=== PATIENT | female | born 1945 | race Caucasian/White ===

== ENCOUNTER → 2016-11-15 | Outpatient (CLI) | payer MEDICARE, MEDICAID ==
[~2016-11-15] MED LIST: AMLO10TA2 PO; AMLO10TA4 PO; AMOX1TAB64 PO; AZIT250T PO; BUDE10.2; BUDE10.2 IH; CEFU500T PO; CYAN1TAB2; DICY10CA3 PO; DOXY100C15 PO; FERR325T20 PO; FOLI-17 PO; FURO-93 PO; HYDR-3240; HYDR-3240 PO; IPRA3AMP18 INH; LISI-170; LORA0.5T PO; METH4TAB2 PO; POTA20PA8 PO; POTA99TA14; PRED10TA14 PO; PRED20TA; PRED20TA PO; PREDNISONE; TIOT18CA; WARF1TAB; WARF5TAB PO; WARF7.5T PO
== END | disposition home or self-care (01) ==
LOC: CFH 14:18
PROVIDERS: ATTEND Internal Medicine Cardiovascular Disease
DX: I08.3 Combined rheumatic disorders of mitral, aortic and tricuspid valves (principal); I25.10 Atherosclerotic heart disease of native coronary artery without angina pectoris; I37.1 Nonrheumatic pulmonary valve insufficiency; J43.9 Emphysema, unspecified; I25.2 Old myocardial infarction; I10 Essential (primary) hypertension; Z87.891 Personal history of nicotine dependence; Z98.82 Breast implant status
CPT/HCPCS: 93306

== ENCOUNTER 2017-01-11 12:51 | Inpatient (IN) | payer MEDICARE, MEDICAID ==
[~2017-01-11] VITALS: Ht 175.3 cm; Wt 56.8 kg
[2017-01-11] MEDS ORDERED: WARF2.5T PO (13:28)
[2017-01-11] MEDS ORDERED: ALBUTEROL/IPRATROPIUM 2.5MG/0.5MG, 3 ML NPPB ONE (13:30)
[2017-01-11] MEDS ORDERED: MORPHINE SULFATE 4 MG/ML, 1ML IVPush PRN (13:30)
[2017-01-11] MEDS ORDERED: methylPREDNISolone SOD SUCC 125 MG/2 ML IVP ONE (13:30)
[2017-01-11] MEDS ORDERED: SODIUM CHLORIDE 0.9% 1,000ML IVBOLUS ONE (13:30)
[2017-01-11] MEDS ORDERED: SODIUM CHLORIDE FLUSH 10ML SYR IVF ONE (13:30)
[2017-01-11] MEDS ORDERED: ONDANSETRON 2MG/ML, 2ML IVP ONE (13:30)
[2017-01-11] MEDS ORDERED: ALBUTEROL/IPRATROPIUM 2.5MG/0.5MG, 3 ML ONE (13:32)
[2017-01-11 14:04] LABS: ASPARTATE AMINO TRANSFERASE 17 U/L (15-37); BLOOD UREA NITROGEN 11 mg/dL (7-18)
[2017-01-11] MEDS ORDERED: MORPHINE SULFATE 4 MG/ML, 1ML ONE (14:12)
[2017-01-11] MEDS ORDERED: methylPREDNISolone SOD SUCC 125 MG/2 ML ONE (14:12)
[2017-01-11] MEDS ORDERED: ONDANSETRON 2MG/ML, 2ML ONE (14:12)
[2017-01-11 14:20] LABS: IS PT STATUS REG ER OR PRE ER? YES
[2017-01-11] MEDS ORDERED: OMNIPAQUE 350 MG/ML, 100ML BOTTLE ONE (15:41)
[2017-01-11] MEDS ORDERED: HYDROcodone/APAP 5/325 TABLET PO SCH (17:00)
[2017-01-11] MEDS: methylPREDNISolone SOD SUCC 40 MG/ML IV SCH (17:00)
[2017-01-11] MEDS ORDERED: POLYETHYLENE GLYCOL 17 GM PACKET PO PRN (17:30)
[2017-01-11] MEDS ORDERED: DOCUSATE 100 MG CAPSULE PO PRN (17:30)
[2017-01-11] MEDS ORDERED: BISACODYL 10 MG SUPP PR PRN (17:30)
[2017-01-11] MEDS ORDERED: WARFARIN 5 MG TABLET PO-COUM ONE (20:00)
[2017-01-11] MEDS: NORCO MC SCH (20:00)
[2017-01-11] MEDS ORDERED: DOXYCYCLINE 100MG TABLET PO ONE (21:00)
[2017-01-11] MEDS: LORazepam 0.5MG TABLET PO SCH (21:00)
[2017-01-11] MEDS: NICOTINE 14MG/24 HR PATCH.TD24 TD SCH (21:34)
[2017-01-11] MEDS: HYDROcodone/APAP 5/325 TABLET PO PRN (21:35)
[2017-01-11 21:45] VITALS: BP 134/80
[2017-01-12] MEDS: methylPREDNISolone SOD SUCC 40 MG/ML IV SCH ×3 (00:56→17:18)
[2017-01-12] MEDS ORDERED: ALBUTEROL/IPRATROPIUM 2.5MG/0.5MG, 3 ML NPPB PRN (01:00)
[2017-01-12 02:00] VITALS: BP 114/66
[2017-01-12] MEDS: NORCO MC SCH ×3 (03:50→20:00)
[2017-01-12 05:36] LABS: ASPARTATE AMINO TRANSFERASE 16 U/L (15-37); BLOOD UREA NITROGEN 16 mg/dL (7-18)
[2017-01-12 06:01] LABS: IS PT STATUS REG ER OR PRE ER? NO
[2017-01-12] MEDS: ALBUTEROL/IPRATROPIUM 2.5MG/0.5MG, 3 ML NPPB SCH ×4 (06:26→20:00)
[2017-01-12 07:40] VITALS: BP 126/67
[2017-01-12] MEDS: DICYCLOMINE 10 MG CAPSULE PO SCH ×3 (08:35→17:18)
[2017-01-12] MEDS: FLUTICASONE/VILANTEROL 200-25MCG/INH INH SCH (08:35)
[2017-01-12] MEDS: HYDROcodone/APAP 5/325 TABLET PO PRN ×3 (08:36→21:46)
[2017-01-12] MEDS: FUROSEMIDE 20 MG TABLET PO SCH (08:36)
[2017-01-12] MEDS: LORazepam 0.5MG TABLET PO SCH ×2 (08:36→21:46)
[2017-01-12] MEDS: POTASSIUM CHLORIDE 20 MEQ TAB.ER.PRT PO SCH (08:36)
[2017-01-12 08:38] LABS: PATH.CAST-FLAG NOT PRESENT; SPERM-FLAG NOT PRESENT; SRC-FLAG NOT PRESENT; XTAL-FLAG NOT PRESENT; YLC-FLAG NOT PRESENT
[2017-01-12] MEDS ORDERED: REGADENOSON 0.4 MG/5 ML SYRINGE ONE (09:05)
[2017-01-12 14:51] VITALS: BP 127/66
[2017-01-12 19:53] VITALS: BP 132/72
[2017-01-12] MEDS: NICOTINE 14MG/24 HR PATCH.TD24 TD SCH (21:47)
[2017-01-13 00:30] VITALS: BP 131/72
[2017-01-13] MEDS: methylPREDNISolone SOD SUCC 40 MG/ML IV SCH ×3 (01:41→10:12)
[2017-01-13] MEDS: ALBUTEROL/IPRATROPIUM 2.5MG/0.5MG, 3 ML NPPB SCH ×2 (07:00→11:00)
[2017-01-13 07:20] VITALS: BP 145/74
[2017-01-13] MEDS: NORCO MC SCH (08:00)
[2017-01-13] MEDS: POTASSIUM CHLORIDE 20 MEQ TAB.ER.PRT PO SCH (08:02)
[2017-01-13] MEDS: DICYCLOMINE 10 MG CAPSULE PO SCH ×2 (08:02→11:41)
[2017-01-13] MEDS: LORazepam 0.5MG TABLET PO SCH (08:02)
[2017-01-13] MEDS: FUROSEMIDE 20 MG TABLET PO SCH (08:02)
[2017-01-13] MEDS: FLUTICASONE/VILANTEROL 200-25MCG/INH INH SCH (08:02)
[2017-01-13] MEDS: HYDROcodone/APAP 5/325 TABLET PO PRN (10:12)
[2017-01-13] MEDS ORDERED: PRED5TAB PO (13:26)
[2017-01-13] MEDS ORDERED: WARFARIN 5 MG TABLET PO-COUM SCH (18:00)
== END 2017-01-13 13:40 | disposition home or self-care (01) | DRG 189 ==
LOC: ED 16:34 → EDIP 17:10 → 5SO 19:41 → 4WST 01-12 18:15 → DCLOUNGE 01-13 13:24
PROVIDERS: ADMIT Internal Medicine; ATTEND Internal Medicine
DX: J96.21 Acute and chronic respiratory failure with hypoxia (principal); J44.1 Chronic obstructive pulmonary disease with (acute) exacerbation; I50.9 Heart failure, unspecified; I11.0 Hypertensive heart disease with heart failure; T38.0X5A Adverse effect of glucocorticoids and synthetic analogues, initial encounter; Z87.891 Personal history of nicotine dependence; Z99.81 Dependence on supplemental oxygen; Z95.2 Presence of prosthetic heart valve; Z87.01 Personal history of pneumonia (recurrent); Z83.3 Family history of diabetes mellitus
CPT/HCPCS: 36415; 71010; 71275; 78452; 80053; 81001; 83605; 83735; 83880; 84100; 84145; 84443; 84484; 85025; 85610; 85730; 87040; 93005; 93017; 94640; 96361; 96374; 96375; J2405; J2785; J7620; Q9967; A9502; C9898; J2920; J2930; J7030

== ENCOUNTER 2017-04-19 11:45 | Emergency (ER) | payer MEDICARE, MEDICAID ==
[~2017-04-19] VITALS: Ht 175.3 cm; Wt 58.4 kg
[~2017-04-19 11:45] MED LIST changes: +FERR325T18 PO; -FERR325T20 PO; +POTA20PA25 PO; -POTA20PA8 PO; +PRED5TAB PO; -TIOT18CA; +TIOT18CA INH; +WARF2.5T PO
[2017-04-19] MEDS ORDERED: methylPREDNISolone SOD SUCC 125 MG/2 ML IVP ONE (12:30)
[2017-04-19] MEDS ORDERED: ALBUTEROL/IPRATROPIUM 2.5MG/0.5MG, 3 ML NPPB SCH (12:30)
[2017-04-19] MEDS ORDERED: SODIUM CHLORIDE FLUSH 10ML SYR IVF ONE (12:30)
[2017-04-19] MEDS ORDERED: ALBUTEROL/IPRATROPIUM 2.5MG/0.5MG, 3 ML ONE (12:33)
[2017-04-19] MEDS ORDERED: methylPREDNISolone SOD SUCC 125 MG/2 ML ONE (12:42)
[2017-04-19] MEDS ORDERED: ONDANSETRON 2MG/ML, 2ML ONE (12:44)
[2017-04-19] MEDS ORDERED: HYDROmorphone 1 MG/ML, 1ML ONE (12:44)
[2017-04-19 12:49] LABS: HEMATOCRIT 40.2 % (34.6-47.8); HEMOGLOBIN 12.8 g/dL (11.7-16.4); WHITE BLOOD COUNT 6.1 x10^3/uL (3.4-10)
[2017-04-19] MEDS ORDERED: LISI-170 PO (12:55)
[2017-04-19 13:00] LABS: BLOOD UREA NITROGEN 11 mg/dL (7-18)
[2017-04-19] MEDS ORDERED: ONDANSETRON 2MG/ML, 2ML IVPush ONE (13:00)
[2017-04-19] MEDS ORDERED: HYDROmorphone 1 MG/ML, 1ML IVPush PRN (13:00)
[2017-04-19 13:05] LABS: IS PT STATUS REG ER OR PRE ER? YES
[2017-04-19 14:00] VITALS: BP 136/71
== END 2017-04-19 14:11 | disposition home or self-care (01) ==
LOC: ED 13:45
DX: J44.1 Chronic obstructive pulmonary disease with (acute) exacerbation (principal); R06.09 Other forms of dyspnea; Z87.891 Personal history of nicotine dependence; I11.0 Hypertensive heart disease with heart failure; I50.30 Unspecified diastolic (congestive) heart failure; Z95.2 Presence of prosthetic heart valve; Z99.81 Dependence on supplemental oxygen
CPT/HCPCS: 36415; 71010; 80048; 82040; 83605; 83880; 84484; 85025; 85610; 85730; 87040; 93005; 94640; 96374; 96375; 99285; J1170; J2405; J2930; J7620

== ENCOUNTER → 2017-08-19 | Outpatient (CLI) | payer MEDICARE, MEDICAID ==
[~2017-08-19] MED LIST changes: +LISI-170 PO
== END ==
LOC: CFH 13:59
PROVIDERS: ATTEND Family Medicine
DX: Z12.31 Encounter for screening mammogram for malignant neoplasm of breast (principal); Z13.820 Encounter for screening for osteoporosis; M81.0 Age-related osteoporosis without current pathological fracture; J96.11 Chronic respiratory failure with hypoxia; T85.49XA Other mechanical complication of breast prosthesis and implant, initial encounter; Z79.51 Long term (current) use of inhaled steroids
CPT/HCPCS: 77080; 77067

== ENCOUNTER 2017-12-06 07:52 | Inpatient (IN) | payer MEDICARE, MEDICAID ==
[~2017-12-06] VITALS: Ht 176.5 cm; Wt 60.3 kg
[2017-12-06] MEDS ORDERED: ALBUTEROL/IPRATROPIUM 2.5MG/0.5MG, 3 ML ONE (08:20)
[2017-12-06] MEDS: ALBUTEROL/IPRATROPIUM 2.5MG/0.5MG, 3 ML NPPB SCH ×3 (08:27→19:24)
[2017-12-06] MEDS ORDERED: methylPREDNISolone SOD SUCC 125 MG/2 ML IVP ONE (08:30)
[2017-12-06] MEDS ORDERED: MAGNESIUM SULFATE PMX 2GM/50ML 50 ML IVPB ONE (08:30)
[2017-12-06] MEDS ORDERED: SODIUM CHLORIDE FLUSH 10ML SYR IVF ONE (08:30)
[2017-12-06] MEDS ORDERED: methylPREDNISolone SOD SUCC 125 MG/2 ML ONE (08:33)
[2017-12-06] MEDS ORDERED: KETOROLAC 30 MG/1 ML ONE (08:46)
[2017-12-06] MEDS ORDERED: FENTANYL PF 100 MCG/2ML ONE (08:47)
[2017-12-06] MEDS ORDERED: KETOROLAC 30 MG/1 ML IVPush ONE (09:00)
[2017-12-06] MEDS ORDERED: FENTANYL PF 100 MCG/2ML IV ONE (09:00)
[2017-12-06] MEDS ORDERED: POTA20TA89 PO (09:03)
[2017-12-06] MEDS ORDERED: LORA0.5T PO (09:03)
[2017-12-06] MEDS ORDERED: DICY10CA3 PO (09:03)
[2017-12-06] MEDS ORDERED: HYDR-3237 PO (09:03)
[2017-12-06] MEDS ORDERED: LASIX PO (09:03)
[2017-12-06] MEDS ORDERED: ALBUTEROL INH (09:05)
[2017-12-06 09:16] LABS: ALANINE AMINOTRANSFERASE 14 U/L (12-78); ALBUMIN 3.7 g/dL (3.4-5.0); ANION GAP 6 mmol/L (5-15); CALCIUM 8.5 mg/dL (8.5-10.1); CHLORIDE 107 mmol/L (98-107)
[2017-12-06 09:21] LABS: ALKALINE PHOSPHATASE 95 U/L (45-117); BILIRUBIN,TOTAL 0.3 mg/dL (0.2-1.0); CREATININE 0.52 mg/dL (0.55-1.02); TOTAL PROTEIN 6.7 g/dL (6.4-8.2); TROPONIN I 0.019 ng/mL (0.000-0.045)
[2017-12-06 09:40] LABS: BASOPHILS # (AUTO) 0.07 x10^3/uL (0-0.1); BASOPHILS % (AUTO) 1 % (0-1); EOSINOPHILS # (AUTO) 0.16 x10^3/uL (0-0.4); EOSINOPHILS % (AUTO) 2 % (1-7); LYMPHOCYTES # (AUTO) 1.04 x10^3/uL (1-3.4); LYMPHOCYTES % (AUTO) 13 % (22-44); MD NO; MEAN CORPUSCULAR HEMOGLOBIN 27.9 pg (27.0-34.8); MEAN CORPUSCULAR VOLUME 84.7 fL (80-100); MEAN PLATELET VOLUME 9.4 fL (7.4-10.4); MONOCYTES # (AUTO) 0.37 x10^3/uL (0.2-0.8); MONOCYTES % (AUTO) 5 % (2-9); NEUTROPHILS # (AUTO) 6.66 x10^3/uL (1.8-6.8); NEUTROPHILS % (AUTO) 80 % (42-75); PLATELET COUNT 271 x10^3/uL (130-400); RED CELL DISTRIBUTION WIDTH 14.5 % (9.6-15.2)
[2017-12-06] MEDS ORDERED: ONDANSETRON ODT 4 MG ONE (10:23)
[2017-12-06] MEDS ORDERED: OMNIPAQUE 350 MG/ML, 100ML BOTTLE ONE (10:25)
[2017-12-06] MEDS ORDERED: ONDANSETRON ODT 4 MG PO ONE (10:30)
[2017-12-06] MEDS ORDERED: CEFTRIAXONE PMX 1GM/50ML 50 ML IV ONE (11:00)
[2017-12-06] MEDS ORDERED: CEFTRIAXONE PMX 1GM/50ML 50 ML ONE (11:14)
[2017-12-06] MEDS ORDERED: MORPHINE SULFATE 4 MG/ML, 1ML ONE (11:53)
[2017-12-06] MEDS ORDERED: LABETALOL 5MG/ML, 20ML IVPush PRN (12:00)
[2017-12-06] MEDS ORDERED: GUAIFENESIN/DM 200-20MG, 10ML UDC PO PRN (12:00)
[2017-12-06] MEDS ORDERED: WARFARIN MECH. VALVE PROTOCOL 2.5 to 3.5 XX PRN (12:00)
[2017-12-06] MEDS ORDERED: ACETAMINOPHEN 325 MG TABLET PO PRN (12:00)
[2017-12-06] MEDS ORDERED: MORPHINE SULFATE 4 MG/ML, 1ML IVPush ONE (12:00)
[2017-12-06] MEDS: CEFTRIAXONE PMX 1GM/50ML 50 ML IV SCH (12:00)
[2017-12-06] MEDS ORDERED: POLYETHYLENE GLYCOL 17 GM PACKET PO PRN (12:00)
[2017-12-06] MEDS ORDERED: hydrALAzine 20 MG/ML, 1ML IVPush PRN (12:00)
[2017-12-06 12:49] VITALS: BP 134/73
[2017-12-06 12:53] LABS: INTERNATIONAL NORMALIZED RATIO 2.5 (0.93-1.1); PROTHROMBIN TIME 25.5 Seconds (9.6-11.5)
[2017-12-06] MEDS: BENZONATATE 100 MG CAPSULE PO SCH ×3 (12:53→20:37)
[2017-12-06] MEDS: DICYCLOMINE 10 MG CAPSULE PO SCH ×2 (12:53→16:03)
[2017-12-06] MEDS: HYDROcodone/APAP 5/325 TABLET PO SCH ×2 (16:03→20:37)
[2017-12-06] MEDS: AZITHROMYCIN 500 MG in SODIUM CHLORIDE 0.9% 250 ML IV SCH (16:39)
[2017-12-06] MEDS: KETOROLAC 30 MG/1 ML IVPush SCH ×2 (16:39→22:41)
[2017-12-06] MEDS ORDERED: WARFARIN 5 MG TABLET PO-COUM ONE (18:00)
[2017-12-06 19:30] VITALS: BP 128/66
[2017-12-06] MEDS: LORazepam 0.5MG TABLET PO SCH (20:37)
[2017-12-06] MEDS ORDERED: IPRATROPIUM 0.5 MG/2.5 ML INHA HHN SCH (21:00)
[2017-12-07] MEDS: BENZONATATE 100 MG CAPSULE PO SCH ×6 (00:30→19:57)
[2017-12-07 01:24] VITALS: BP 106/58
[2017-12-07] MEDS: KETOROLAC 30 MG/1 ML IVPush SCH ×4 (04:22→22:57)
[2017-12-07 04:37] LABS: BASOPHILS # (AUTO) 0.02 x10^3/uL (0-0.1); BASOPHILS % (AUTO) 0 % (0-1); EOSINOPHILS % (AUTO) 0 % (1-7); LYMPHOCYTES # (AUTO) 0.49 x10^3/uL (1-3.4); LYMPHOCYTES % (AUTO) 7 % (22-44); MD NO; MEAN CORPUSCULAR HEMOGLOBIN 28.3 pg (27.0-34.8); MEAN CORPUSCULAR VOLUME 85.8 fL (80-100); MEAN PLATELET VOLUME 9.6 fL (7.4-10.4); MONOCYTES # (AUTO) 0.28 x10^3/uL (0.2-0.8); MONOCYTES % (AUTO) 4 % (2-9); NEUTROPHILS # (AUTO) 5.89 x10^3/uL (1.8-6.8); NEUTROPHILS % (AUTO) 88 % (42-75); PLATELET COUNT 237 x10^3/uL (130-400); RED BLOOD COUNT 3.98 x10^6/uL (3.82-5.3); RED CELL DISTRIBUTION WIDTH 14.8 % (9.6-15.2)
[2017-12-07 04:42] LABS: INTERNATIONAL NORMALIZED RATIO 3.25 (0.93-1.1)
[2017-12-07 04:47] LABS: ANION GAP 3 mmol/L (5-15); CALCIUM 8.9 mg/dL (8.5-10.1); CHLORIDE 103 mmol/L (98-107); CREATININE 0.54 mg/dL (0.55-1.02)
[2017-12-07] MEDS: ALBUTEROL/IPRATROPIUM 2.5MG/0.5MG, 3 ML NPPB SCH ×4 (06:46→20:00)
[2017-12-07 07:09] VITALS: BP 130/71
[2017-12-07] MEDS: SENNA/DOCUSATE TABLET PO SCH ×2 (08:22→08:24)
[2017-12-07] MEDS: DICYCLOMINE 10 MG CAPSULE PO SCH ×3 (08:22→15:57)
[2017-12-07] MEDS: HYDROcodone/APAP 5/325 TABLET PO SCH ×3 (08:22→19:57)
[2017-12-07] MEDS: LISINOPRIL 20 MG TABLET PO SCH (08:22)
[2017-12-07] MEDS: LORazepam 0.5MG TABLET PO SCH ×2 (08:23→19:57)
[2017-12-07] MEDS ORDERED: WARFARIN 5 MG TABLET PO-COUM SCH (09:00)
[2017-12-07] MEDS: FLUTICASONE/VILANTEROL 200-25MCG/INH INH SCH (09:51)
[2017-12-07 12:25] VITALS: BP 133/64
[2017-12-07] MEDS: CEFTRIAXONE PMX 1GM/50ML 50 ML IV SCH (12:30)
[2017-12-07] MEDS: AZITHROMYCIN 500 MG in SODIUM CHLORIDE 0.9% 250 ML IV SCH (15:58)
[2017-12-07] MEDS ORDERED: WARFARIN 2.5 MG TABLET PO-COUM ONE (18:00)
[2017-12-07 19:35] VITALS: BP 135/64
[2017-12-08 00:54] VITALS: BP 132/72
[2017-12-08] MEDS: BENZONATATE 100 MG CAPSULE PO SCH ×6 (01:09→21:11)
[2017-12-08] MEDS: KETOROLAC 30 MG/1 ML IVPush SCH ×4 (04:17→22:45)
[2017-12-08 05:14] LABS: INTERNATIONAL NORMALIZED RATIO 3.25 (0.93-1.1)
[2017-12-08 06:29] VITALS: BP 107/65
[2017-12-08] MEDS: ALBUTEROL/IPRATROPIUM 2.5MG/0.5MG, 3 ML NPPB SCH ×4 (06:46→19:38)
[2017-12-08] MEDS: SENNA/DOCUSATE TABLET PO SCH (08:56)
[2017-12-08] MEDS: LORazepam 0.5MG TABLET PO SCH ×2 (09:03→21:11)
[2017-12-08] MEDS: FLUTICASONE/VILANTEROL 200-25MCG/INH INH SCH (09:03)
[2017-12-08] MEDS: DICYCLOMINE 10 MG CAPSULE PO SCH ×3 (09:03→17:34)
[2017-12-08] MEDS: LISINOPRIL 20 MG TABLET PO SCH (09:03)
[2017-12-08] MEDS: HYDROcodone/APAP 5/325 TABLET PO SCH ×3 (09:03→21:10)
[2017-12-08] MEDS: CEFTRIAXONE PMX 1GM/50ML 50 ML IV SCH (11:45)
[2017-12-08 14:04] VITALS: BP 127/69
[2017-12-08] MEDS: AZITHROMYCIN 500 MG in SODIUM CHLORIDE 0.9% 250 ML IV SCH (15:52)
[2017-12-08] MEDS ORDERED: WARFARIN 2.5 MG TABLET PO-COUM ONE (18:00)
[2017-12-08 19:54] VITALS: BP 134/67
[2017-12-09] MEDS: BENZONATATE 100 MG CAPSULE PO SCH ×6 (00:50→22:12)
[2017-12-09 01:42] VITALS: BP 100/62
[2017-12-09] MEDS: KETOROLAC 30 MG/1 ML IVPush SCH ×4 (04:39→22:12)
[2017-12-09 05:45] LABS: INTERNATIONAL NORMALIZED RATIO 2.09 (0.93-1.1); PROTHROMBIN TIME 21.4 Seconds (9.6-11.5)
[2017-12-09 07:41] VITALS: BP 145/75
[2017-12-09] MEDS: ALBUTEROL/IPRATROPIUM 2.5MG/0.5MG, 3 ML NPPB SCH ×4 (07:52→19:42)
[2017-12-09] MEDS: LORazepam 0.5MG TABLET PO SCH ×2 (08:44→20:54)
[2017-12-09] MEDS: FLUTICASONE/VILANTEROL 200-25MCG/INH INH SCH (08:44)
[2017-12-09] MEDS: DICYCLOMINE 10 MG CAPSULE PO SCH ×3 (08:44→18:15)
[2017-12-09] MEDS: LISINOPRIL 20 MG TABLET PO SCH (08:45)
[2017-12-09] MEDS: SENNA/DOCUSATE TABLET PO SCH (08:45)
[2017-12-09] MEDS: HYDROcodone/APAP 5/325 TABLET PO SCH ×3 (08:45→20:54)
[2017-12-09] MEDS ORDERED: ARTIFICIAL TEARS 15 DROP/ML BOTTLE EACHEYE PRN ×2 (09:00→11:00)
[2017-12-09] MEDS: CEFTRIAXONE PMX 1GM/50ML 50 ML IV SCH (13:54)
[2017-12-09] MEDS: AZITHROMYCIN 500 MG in SODIUM CHLORIDE 0.9% 250 ML IV SCH (16:33)
[2017-12-09 16:43] VITALS: BP 134/68
[2017-12-09] MEDS ORDERED: WARFARIN 5 MG TABLET PO-COUM ONE (18:00)
[2017-12-09 19:12] VITALS: BP 115/59
[2017-12-10 01:31] VITALS: BP 140/70
[2017-12-10] MEDS: BENZONATATE 100 MG CAPSULE PO SCH ×3 (02:13→08:37)
[2017-12-10] MEDS: KETOROLAC 30 MG/1 ML IVPush SCH ×2 (04:29→11:45)
[2017-12-10 05:52] LABS: INTERNATIONAL NORMALIZED RATIO 1.59 (0.93-1.1); PROTHROMBIN TIME 16.4 Seconds (9.6-11.5)
[2017-12-10] MEDS: ALBUTEROL/IPRATROPIUM 2.5MG/0.5MG, 3 ML NPPB SCH ×2 (07:15→12:00)
[2017-12-10 07:20] VITALS: BP 154/79
[2017-12-10] MEDS ORDERED: LEVO750T26 PO (07:59)
[2017-12-10] MEDS ORDERED: LEVOFLOXACIN 750 MG TABLET PO SCH (08:00)
[2017-12-10] MEDS: FLUTICASONE/VILANTEROL 200-25MCG/INH INH SCH (08:37)
[2017-12-10] MEDS: HYDROcodone/APAP 5/325 TABLET PO SCH (08:37)
[2017-12-10] MEDS: DICYCLOMINE 10 MG CAPSULE PO SCH ×2 (08:38→12:00)
[2017-12-10] MEDS: SENNA/DOCUSATE TABLET PO SCH (08:38)
[2017-12-10] MEDS: LORazepam 0.5MG TABLET PO SCH (08:38)
[2017-12-10] MEDS: LISINOPRIL 20 MG TABLET PO SCH (08:38)
[2017-12-10] MEDS ORDERED: WARFARIN 10 MG TABLET PO-COUM ONE (18:00)
== END 2017-12-10 17:00 | disposition home or self-care (01) | DRG 193 ==
LOC: ED 10:43 → EDIP 11:33 → 3NE 12:18
PROVIDERS: ADMIT Internal Medicine Pulmonary Disease; ATTEND Internal Medicine Pulmonary Disease
DX: J18.1 Lobar pneumonia, unspecified organism (principal); J96.01 Acute respiratory failure with hypoxia; E87.2 Acidosis; J44.0 Chronic obstructive pulmonary disease with (acute) lower respiratory infection; J44.1 Chronic obstructive pulmonary disease with (acute) exacerbation; I11.0 Hypertensive heart disease with heart failure; I50.9 Heart failure, unspecified; F17.200 Nicotine dependence, unspecified, uncomplicated; Z95.2 Presence of prosthetic heart valve
CPT/HCPCS: 36415; 36600; 71045; 71250; 71275; 80048; 80053; 82803; 83605; 83735; 83880; 84484; 85025; 85610; 87040; 93005; 94640; 96374; 96375; J0456; J0696; J1885; J3010; J7620; Q0162; Q9967; J2930; J3475; J7050

== ENCOUNTER → 2018-02-27 | Outpatient (CLI) | payer MEDICARE, MEDICAID ==
[~2018-02-27] MED LIST changes: +ALBUTEROL INH; +HYDR-3237 PO; +LASIX PO; +LEVO750T26 PO; +POTA20TA89 PO
== END | disposition home or self-care (01) ==
LOC: CFH 12:39
PROVIDERS: ATTEND Nurse Practitioner Family
DX: I35.1 Nonrheumatic aortic (valve) insufficiency (principal); I25.2 Old myocardial infarction; J44.9 Chronic obstructive pulmonary disease, unspecified; I10 Essential (primary) hypertension; Z79.01 Long term (current) use of anticoagulants; Z95.2 Presence of prosthetic heart valve; Z72.0 Tobacco use
CPT/HCPCS: 93306

== ENCOUNTER 2018-07-29 08:37 | Inpatient (IN) | payer MEDICARE, MEDICAID ==
[~2018-07-29] VITALS: Ht 175.3 cm; Wt 56.1 kg
[~2018-07-29 08:37] MED LIST changes: -AMLO10TA2 PO; +AMLO10TA8 PO
[2018-07-29] MEDS ORDERED: ALBUTEROL/IPRATROPIUM 2.5MG/0.5MG, 3 ML ONE (08:44)
[2018-07-29] MEDS ORDERED: SODIUM CHLORIDE 0.9% 1,000 ML IV ONE (08:47)
--- NOTE | 2018-07-29 08:48 | NUR ---
72 Y/O FEMALE BIB AMBULANCE WITH C/O SOB AND LEFT SIDE RIB/BACK PAIN. "I STARTED GETTING SOB YESTERDAY. I'VE HAD A COUGH FOR A FEW DAYS TOO. I TURNED MY OXYGEN UP TO 3 LPM. I USUALLY WEAR JUST 2 LPM. MY LEFT SIDE BACK RIB AREA HURTS TOO. IT'S BEEN FOR A COUPLE DAYS. I DIDN'T EVEN NOTICE THE LUMP ON MY LEFT SIDE." PT PLACED ON CONTPULSE OX,NIBP, PAINT MAKER. RT BEDSIDE. NO C/O N/V/D, TRAUMA, SYNCOPE, CP. PER EMS REPORT PIV ESTABLISHED. 50 MCG FENTANYL, 4 ZOFRAN, TWO DUONEBS, AND ONE ALBUTEROL TREATMENT ADMINISTERED SURFACE GRINDING MACHINE HAND. FSBS PER EMS WAS 99
[2018-07-29] MEDS ORDERED: ONDANSETRON 2MG/ML, 2ML IVP ONE (09:00)
[2018-07-29] MEDS ORDERED: MORPHINE SULFATE 4 MG/ML, 1ML IVPush PRN (09:00)
[2018-07-29] MEDS ORDERED: MORPHINE SULFATE 4 MG/ML, 1ML ONE (09:02)
[2018-07-29] MEDS ORDERED: ONDANSETRON 2MG/ML, 2ML ONE ×2 (09:02→14:08)
[2018-07-29 09:21] LABS: BASOPHILS # (AUTO) 0.06 x10^3/uL (0-0.1); BASOPHILS % (AUTO) 1 % (0-1); EOSINOPHILS # (AUTO) 0.19 x10^3/uL (0-0.4); EOSINOPHILS % (AUTO) 2 % (1-7); LYMPHOCYTES # (AUTO) 0.95 x10^3/uL (1-3.4); LYMPHOCYTES % (AUTO) 8 % (22-44); MD NO; MEAN CORPUSCULAR HEMOGLOBIN 28.1 pg (27.0-34.8); MEAN CORPUSCULAR HGB CONC 32.5 g/dL (32.4-35.8); MEAN CORPUSCULAR VOLUME 86.4 fL (80-100); MEAN PLATELET VOLUME 8.9 fL (7.4-10.4); MONOCYTES # (AUTO) 0.33 x10^3/uL (0.2-0.8); MONOCYTES % (AUTO) 3 % (2-9); NEUTROPHILS # (AUTO) 9.79 x10^3/uL (1.8-6.8); NEUTROPHILS % (AUTO) 87 % (42-75); PLATELET COUNT 259 x10^3/uL (130-400); RED BLOOD COUNT 4.25 x10^6/uL (3.82-5.3); RED CELL DISTRIBUTION WIDTH 14.6 % (9.6-15.2)
[2018-07-29] MEDS ORDERED: ALBUTEROL/IPRATROPIUM 2.5MG/0.5MG, 3 ML NEB ONE (09:30)
[2018-07-29 09:34] LABS: ALBUMIN 3.8 g/dL (3.4-5.0); ANION GAP 4 mmol/L (5-15); CHLORIDE 109 mmol/L (98-107); CREATININE 0.52 mg/dL (0.55-1.02)
--- NOTE | 2018-07-29 09:35 | NUR ---
PT RESTING ON GURNEY. PT IN PAIN. MEDICATIONS ADMINISTERED PER EMAR. PT PLACED ON OXY MASK. PT SATURATIONS INCREASING. PT AWAITING IMAGING. NO NEEDS REQUESTED AT THIS TIME.
[2018-07-29 09:37] LABS: TROPONIN I < 0.015 ng/mL (0.000-0.045)
--- NOTE | 2018-07-29 10:07 | NUR ---
pt being taken to imaging.
[2018-07-29] MEDS ORDERED: OMNIPAQUE 350 MG/ML, 100ML BOTTLE ONE (10:51)
--- NOTE | 2018-07-29 10:57 | NUR ---
LATE ENTRY FOR 1030 PT BACK FROM IMAGING.
--- NOTE | 2018-07-29 11:07 | NUR ---
PT RESTING ON GURNEY.. NO ACUTE DISTRESS NOTED. PT VERBALIZED UNDERSTANDING REGARDING POC. NO NEEDS REQUESTED AT THIS TIME.
[2018-07-29] MEDS ORDERED: KETOROLAC 30 MG/1 ML ONE (11:24)
--- NOTE | 2018-07-29 11:26 | NUR ---
PT RESTING ON GURNEY. NO ACUTE DISTRESS NOTED. PT STILL C/O PAIN. MEDICATION GIVEN PER EMAR. NO NEEDS REQUESTED AT THIS TIME.
[2018-07-29] MEDS ORDERED: KETOROLAC 30 MG/1 ML IVPush ONE (11:30)
[2018-07-29 11:37] LABS: RAPID INFLUENZA A Negative (Negative); RAPID INFLUENZA B Negative (Negative)
[2018-07-29] MEDS ORDERED: SODIUM CHLORIDE 0.9% 1,000 ML IV SCH (12:01)
[2018-07-29] MEDS ORDERED: ENALAPRILAT 1.25 MG/ML, 2ML IVPush PRN (12:30)
[2018-07-29] MEDS ORDERED: LIDODERM 5% PATCH TD PRN (12:30)
[2018-07-29] MEDS ORDERED: ONDANSETRON ODT 4 MG PO PRN (12:30)
[2018-07-29] MEDS ORDERED: BISACODYL 10 MG SUPP PR PRN (12:30)
[2018-07-29] MEDS ORDERED: ONDANSETRON 2MG/ML, 2ML IVPush PRN (12:30)
[2018-07-29] MEDS ORDERED: DOCUSATE 100 MG CAPSULE PO PRN (12:30)
[2018-07-29] MEDS ORDERED: hydrALAzine 20 MG/ML, 1ML IVPush PRN (12:30)
[2018-07-29] MEDS ORDERED: METOCLOPRAMIDE 5 MG/ML, 2ML IVPush PRN (12:30)
[2018-07-29] MEDS ORDERED: ALBUTEROL/IPRATROPIUM 2.5MG/0.5MG, 3 ML NPPB SCH (12:30)
[2018-07-29] MEDS ORDERED: ACETAMINOPHEN 325 MG TABLET PO PRN (12:30)
--- NOTE | 2018-07-29 12:57 | NUR ---
pt sleeping on gurney. no acute distress noted. resps equal and unlabored. vss. will continue to monitor.
--- NOTE | 2018-07-29 13:50 | NUR ---
Break RN: Pt reports unable to eat meal tray due to nausea. Will medicate w/ zofran as per emar.
--- NOTE | 2018-07-29 14:14 | NUR ---
REPORT TO [facility]. ALL QUESTIONS ANSWERED.
[2018-07-29] MEDS ORDERED: CEFTRIAXONE PMX 1GM/50ML 50 ML IV SCH (14:30)
[2018-07-29] MEDS: ALBUTEROL/IPRATROPIUM 2.5MG/0.5MG, 3 ML NPPB SCH ×3 (14:30→22:30)
[2018-07-29] MEDS ORDERED: AZITHROMYCIN 500 MG in SODIUM CHLORIDE 0.9% 250 ML IV SCH (14:30)
[2018-07-29 14:53] VITALS: BP 133/73
[2018-07-29] MEDS ORDERED: BUDESONIDE 0.5 MG/2 ML INHA HHN SCH (15:00)
[2018-07-29] MEDS ORDERED: ALBUTEROL SULFATE 2.5 MG/3 ML NPPB PRN (15:00)
[2018-07-29] MEDS: HYDROcodone/APAP 5/325 TABLET PO SCH ×2 (15:04→20:14)
[2018-07-29] MEDS: methylPREDNISolone SOD SUCC 125 MG/2 ML IVPush SCH ×2 (15:04→23:22)
[2018-07-29] MEDS: DICYCLOMINE 10 MG CAPSULE PO SCH (17:38)
[2018-07-29 18:52] VITALS: BP 114/63
[2018-07-29] MEDS: BUDESONIDE 0.5 MG/2 ML INHA INH SCH (19:20)
[2018-07-29 19:48] LABS: MICROSCOPIC AUTO
[2018-07-29 19:49] LABS: CULTURE INDICATED? NO
[2018-07-29] MEDS ORDERED: BUDESONIDE 0.5 MG/2 ML INHA NPPB SCH (21:00)
[2018-07-30 00:45] VITALS: BP 109/58
[2018-07-30] MEDS: ALBUTEROL/IPRATROPIUM 2.5MG/0.5MG, 3 ML NPPB SCH ×6 (03:30→22:30)
[2018-07-30 06:21] LABS: BASOPHILS % (AUTO) 0 % (0-1); EOSINOPHILS # (AUTO) 0.15 x10^3/uL (0-0.4); EOSINOPHILS % (AUTO) 2 % (1-7); LYMPHOCYTES # (AUTO) 0.37 x10^3/uL (1-3.4); LYMPHOCYTES % (AUTO) 4 % (22-44); MD NO; MEAN CORPUSCULAR HEMOGLOBIN 29.3 pg (27.0-34.8); MEAN CORPUSCULAR HGB CONC 33.5 g/dL (32.4-35.8); MEAN CORPUSCULAR VOLUME 87.3 fL (80-100); MEAN PLATELET VOLUME 9.5 fL (7.4-10.4); MONOCYTES # (AUTO) 0.03 x10^3/uL (0.2-0.8); MONOCYTES % (AUTO) 0 % (2-9); NEUTROPHILS # (AUTO) 8.59 x10^3/uL (1.8-6.8); NEUTROPHILS % (AUTO) 94 % (42-75); PLATELET COUNT 212 x10^3/uL (130-400); RED BLOOD COUNT 3.75 x10^6/uL (3.82-5.3); RED CELL DISTRIBUTION WIDTH 14.5 % (9.6-15.2)
[2018-07-30 06:25] LABS: INTERNATIONAL NORMALIZED RATIO 3.77 (0.93-1.1)
[2018-07-30 06:29] LABS: ANION GAP 5 mmol/L (5-15); CALCIUM 8.9 mg/dL (8.5-10.1); CHLORIDE 107 mmol/L (98-107)
[2018-07-30 06:31] LABS: CREATININE 0.36 mg/dL (0.55-1.02)
[2018-07-30 07:15] VITALS: BP 133/59
[2018-07-30] MEDS: SENNA/DOCUSATE TABLET PO SCH (08:11)
[2018-07-30] MEDS: methylPREDNISolone SOD SUCC 125 MG/2 ML IVPush SCH (08:12)
[2018-07-30] MEDS: HYDROcodone/APAP 5/325 TABLET PO SCH ×3 (08:13→20:55)
[2018-07-30] MEDS: POTASSIUM CHLORIDE 20 MEQ TAB.ER.PRT PO SCH (08:13)
[2018-07-30] MEDS: DICYCLOMINE 10 MG CAPSULE PO SCH ×3 (08:13→17:09)
[2018-07-30] MEDS: LISINOPRIL 20 MG TABLET PO SCH (08:13)
[2018-07-30] MEDS ORDERED: IPRATROPIUM 0.5 MG/2.5 ML INHA NPPB SCH (09:00)
[2018-07-30] MEDS ORDERED: WARFARIN 5 MG TABLET PO-COUM SCH (09:00)
[2018-07-30] MEDS: WARFARIN MECH. VALVE PROTOCOL 2.5 to 3.5 XX SCH (09:17)
[2018-07-30] MEDS: SODIUM CHLORIDE 0.9% 1,000 ML IV SCH (11:18)
[2018-07-30] MEDS: BUDESONIDE 0.5 MG/2 ML INHA INH SCH ×2 (11:50→21:00)
[2018-07-30] MEDS ORDERED: LORA0.5T PO (12:25)
[2018-07-30 14:22] VITALS: BP 123/64
[2018-07-30] MEDS ORDERED: LORazepam 0.5MG TABLET PO PRN (15:00)
[2018-07-30] MEDS ORDERED: AMOXICILLIN 250 MG CAPSULE ONE (15:59)
[2018-07-30] MEDS: AMOXICILLIN 500 MG CAPSULE PO SCH ×2 (16:02→20:54)
[2018-07-30] MEDS ORDERED: WARFARIN 2 MG TABLET PO-COUM ONE (18:00)
[2018-07-30 18:57] VITALS: BP 132/68
[2018-07-30] MEDS: DOXYCYCLINE 100MG CAP PO SCH (20:54)
[2018-07-31 01:51] VITALS: BP 110/52
[2018-07-31] MEDS: ALBUTEROL/IPRATROPIUM 2.5MG/0.5MG, 3 ML NPPB SCH ×3 (03:00→10:30)
[2018-07-31] MEDS: SODIUM CHLORIDE 0.9% 1,000 ML IV SCH (03:54)
[2018-07-31 06:03] LABS: INTERNATIONAL NORMALIZED RATIO 3.03 (0.93-1.1); PROTHROMBIN TIME 30.8 Seconds (9.6-11.5)
[2018-07-31 07:07] VITALS: BP 143/68
[2018-07-31] MEDS: BUDESONIDE 0.5 MG/2 ML INHA INH SCH (07:50)
[2018-07-31] MEDS: SENNA/DOCUSATE TABLET PO SCH (09:00)
[2018-07-31] MEDS: WARFARIN MECH. VALVE PROTOCOL 2.5 to 3.5 XX SCH (09:00)
[2018-07-31] MEDS ORDERED: methylPREDNISolone SOD SUCC 125 MG/2 ML IVPush SCH (09:00)
[2018-07-31] MEDS: DICYCLOMINE 10 MG CAPSULE PO SCH ×2 (10:06→12:36)
[2018-07-31] MEDS: DOXYCYCLINE 100MG CAP PO SCH (10:06)
[2018-07-31] MEDS: POTASSIUM CHLORIDE 20 MEQ TAB.ER.PRT PO SCH (10:06)
[2018-07-31] MEDS: AMOXICILLIN 500 MG CAPSULE PO SCH (10:06)
[2018-07-31] MEDS: HYDROcodone/APAP 5/325 TABLET PO SCH (10:06)
[2018-07-31] MEDS: LISINOPRIL 20 MG TABLET PO SCH (10:06)
[2018-07-31] MEDS ORDERED: DOXY100C2 PO (11:11)
[2018-07-31] MEDS ORDERED: AMOX-291 PO (11:11)
[2018-07-31] MEDS ORDERED: ATOR40TA78 PO (11:15)
[2018-07-31 12:27] VITALS: BP 137/71
[2018-07-31] MEDS ORDERED: WARFARIN 5 MG TABLET PO-COUM ONE (18:00)
== END 2018-07-31 15:00 | disposition home or self-care (01) | DRG 871 ==
LOC: ED 11:23 → EDIP 11:57 → 4EST 14:24 → DCLOUNGE 07-31 14:39
PROVIDERS: ADMIT Hospitalist; ATTEND Hospitalist
DX: A41.9 Sepsis, unspecified organism (principal); J96.21 Acute and chronic respiratory failure with hypoxia; J44.1 Chronic obstructive pulmonary disease with (acute) exacerbation; D68.69 Other thrombophilia; J98.11 Atelectasis; I50.30 Unspecified diastolic (congestive) heart failure; K44.9 Diaphragmatic hernia without obstruction or gangrene; I25.5 Ischemic cardiomyopathy; N20.0 Calculus of kidney; F17.210 Nicotine dependence, cigarettes, uncomplicated; I11.0 Hypertensive heart disease with heart failure; I25.10 Atherosclerotic heart disease of native coronary artery without angina pectoris; Z71.6 Tobacco abuse counseling; Z83.3 Family history of diabetes mellitus; Z95.1 Presence of aortocoronary bypass graft; Z95.2 Presence of prosthetic heart valve; Z99.81 Dependence on supplemental oxygen
CPT/HCPCS: 36415; 71045; 71275; 80048; 81001; 82040; 83605; 84484; 85025; 85610; 87040; 87400; 93005; 94640; 94667; 96374; 96375; G0378; J0456; J0696; J1885; J2405; J7613; J7620; J7626; Q9967; J2930; J7030; J7050; J7512

== ENCOUNTER 2018-10-04 13:19 | Emergency (ER) | payer MEDICARE, MEDICAID ==
[~2018-10-04] VITALS: Ht 175.3 cm; Wt 53.0 kg
[~2018-10-04 13:19] MED LIST changes: +AMOX-291 PO; +ATOR40TA78 PO; +DOXY100C2 PO
[2018-10-04] MEDS ORDERED: MORPHINE SULFATE 4 MG/ML, 1ML ONE ×2 (13:49→14:51)
[2018-10-04] MEDS ORDERED: ONDANSETRON 2MG/ML, 2ML ONE (13:49)
[2018-10-04] MEDS: MORPHINE SULFATE 4 MG/ML, 1ML IVPush PRN ×2 (13:56→15:00)
[2018-10-04] MEDS ORDERED: PLEASE ENTER HEIGHT AND WEIGHT MC SCH (14:00)
[2018-10-04] MEDS ORDERED: ONDANSETRON 2MG/ML, 2ML IVPush ONE (14:00)
--- NOTE | 2018-10-04 14:00 | NUR ---
PT GIVEN MEDS PER REQUEST FOR 9/10 L FLANK PAIN AND NAUSEA. PT STATES ABD PAIN AND INABILITY TO KEEP FOOD OR FLUIDS DOWN, AND WEIGHT LOSS "FOR MONTHS". BSC IN PLACE, PT GIVEN URINE CUP. PT STATES "I'M NOT GOING TO BE ABLE TO GO UNTIL I GET SOME WATER". PT INSTRUCTED ON NEED TO BE NPO UNTIL RESULTS ARE BACK. PT STATES "I AM NOT GOING TO HAVE SURGERY, I WILL REFUSE ANY SURGERY". PT ALSO STATES SHE HAS NOT BEEN VOMITING FOR OVER 24 HOURS. PT REQUESTED TO TRY FOR UA, AND PUT CALL LIGHT ON WHEN ABLE. PT ALSO UPDATED ON REST OF POC. CALL LIGHT WITHIN REACH.
[2018-10-04 14:08] LABS: BASOPHILS # (AUTO) 0.03 x10^3/uL (0-0.1); BASOPHILS % (AUTO) 0 % (0-1); EOSINOPHILS # (AUTO) 0.19 x10^3/uL (0-0.4); EOSINOPHILS % (AUTO) 3 % (1-7); LYMPHOCYTES # (AUTO) 0.73 x10^3/uL (1-3.4); LYMPHOCYTES % (AUTO) 10 % (22-44); MD NO; MEAN CORPUSCULAR HEMOGLOBIN 29.1 pg (27.0-34.8); MEAN CORPUSCULAR HGB CONC 33.5 g/dL (32.4-35.8); MEAN CORPUSCULAR VOLUME 86.9 fL (80-100); MEAN PLATELET VOLUME 9.2 fL (7.4-10.4); MONOCYTES % (AUTO) 3 % (2-9); NEUTROPHILS # (AUTO) 6.41 x10^3/uL (1.8-6.8); NEUTROPHILS % (AUTO) 85 % (42-75); PLATELET COUNT 243 x10^3/uL (130-400); RED BLOOD COUNT 4.49 x10^6/uL (3.82-5.3); RED CELL DISTRIBUTION WIDTH 14.7 % (9.6-15.2)
[2018-10-04 14:13] LABS: ALANINE AMINOTRANSFERASE 13 U/L (12-78); ALBUMIN 4.3 g/dL (3.4-5.0); ANION GAP 4 mmol/L (5-15); CALCIUM 9.1 mg/dL (8.5-10.1); CHLORIDE 105 mmol/L (98-107); CREATININE 0.62 mg/dL (0.55-1.02)
[2018-10-04 14:15] LABS: ALKALINE PHOSPHATASE 74 U/L (45-117); BILIRUBIN,TOTAL 0.6 mg/dL (0.2-1.0); TOTAL PROTEIN 7.3 g/dL (6.4-8.2)
--- NOTE | 2018-10-04 15:06 | NUR ---
PT STILL STATING SHE CAN'T URINATE. ST CATH PERFORMED, UA TO LAB. PT C/O PERSISTENT 9/10 L FLANK PAIN. PT REMEDICATED PER ERP ORDER. VSS, UPDATED IN COMPUTER.
[2018-10-04 15:07] VITALS: BP 117/61
[2018-10-04 15:21] LABS: MICROSCOPIC AUTO
[2018-10-04 15:23] LABS: CULTURE INDICATED? NO
--- NOTE | 2018-10-04 15:48 | NUR ---
JAVI SAXENA) TO TRANSPORT PT @ 1800. Addendum: 10/04/18 at 1549 by DARNELL SEBASTIAN GAMBINO (JASON) TO TRANSPORT PT @ 1800.
--- NOTE | 2018-10-04 15:56 | NUR ---
PT DISCHARGED HOME BUT DID NOT BRING HOME OXYGEN TANK WITH HER. THROUGHPUT RN TO ARRANGE TRANSPORT. PT UPDATED ON ETA.
--- NOTE | 2018-10-04 17:21 | NUR ---
PT SLEEPING, CONTINUE TO AWAIT TRANSPORT.
== END 2018-10-04 18:25 | disposition home or self-care (01) ==
LOC: ED 16:02
DX: J90 Pleural effusion, not elsewhere classified (principal); M54.6 Pain in thoracic spine; I11.0 Hypertensive heart disease with heart failure; J44.9 Chronic obstructive pulmonary disease, unspecified; I50.9 Heart failure, unspecified; F17.200 Nicotine dependence, unspecified, uncomplicated
CPT/HCPCS: 36415; 71045; 74176; 80053; 81001; 83690; 85025; 93005; 96374; 96375; 96376; 99284; J2405

== ENCOUNTER 2018-10-17 13:38 | Outpatient (CLI) | payer MEDICARE, MEDICAID ==
[2018-10-17] MEDS ORDERED: OMNIPAQUE 350 MG/ML, 100ML BOTTLE ONE (15:49)
== END 2018-10-17 23:59 | disposition home or self-care (01) ==
LOC: CFH 13:38
PROVIDERS: ATTEND Family Medicine
DX: J43.2 Centrilobular emphysema (principal); K44.9 Diaphragmatic hernia without obstruction or gangrene; N20.0 Calculus of kidney; N28.89 Other specified disorders of kidney and ureter; K57.30 Diverticulosis of large intestine without perforation or abscess without bleeding; M47.816 Spondylosis without myelopathy or radiculopathy, lumbar region; I70.0 Atherosclerosis of aorta; I70.8 Atherosclerosis of other arteries; J98.4 Other disorders of lung; N28.1 Cyst of kidney, acquired
CPT/HCPCS: 36415; 71260; 74177; 82150; 82565; 82784; 83516; 83690; 86255; Q9967

== ENCOUNTER 2019-06-14 03:55 | Inpatient (IN) | payer MEDICARE, MEDICAID ==
[~2019-06-14] VITALS: Ht 176.5 cm; Wt 65.0 kg
[2019-06-14] MEDS ORDERED: MORPHINE SULFATE 4 MG/ML, 1ML IVPush PRN ×2 (04:00→07:00)
[2019-06-14] MEDS ORDERED: ONDANSETRON 2MG/ML, 2ML IVPush ONE (04:00)
[2019-06-14] MEDS ORDERED: MORPHINE SULFATE 4 MG/ML, 1ML ONE (04:06)
--- NOTE | 2019-06-14 04:16 | NUR ---
brought in by tavia from home. c/o SOB since yesterday. noticed swelling on left mid back, soft but painful. fentanyl 50 mcg and 4 zofran given [facility]. denies fall/ trauma
--- NOTE | 2019-06-14 04:20 | NUR ---
patient medicated for pain.
--- NOTE | 2019-06-14 04:26 | NUR ---
slab depiler operator at bedside for blood draw.
[2019-06-14 04:38] LABS: BASOPHILS % (AUTO) 0 % (0-1); EOSINOPHILS # (AUTO) 0.15 x10^3/uL (0-0.4); EOSINOPHILS % (AUTO) 1 % (1-7); LYMPHOCYTES % (AUTO) 5 % (22-44); MD NO; MEAN CORPUSCULAR HEMOGLOBIN 28.4 pg (27.0-34.8); MEAN CORPUSCULAR HGB CONC 32.5 g/dL (32.4-35.8); MEAN CORPUSCULAR VOLUME 87.3 fL (80-100); MEAN PLATELET VOLUME 9.1 fL (7.4-10.4); MONOCYTES # (AUTO) 0.26 x10^3/uL (0.2-0.8); MONOCYTES % (AUTO) 2 % (2-9); NEUTROPHILS # (AUTO) 14.31 x10^3/uL (1.8-6.8); NEUTROPHILS % (AUTO) 93 % (42-75); PLATELET COUNT 251 x10^3/uL (130-400); RED BLOOD COUNT 4.22 x10^6/uL (3.82-5.3); RED CELL DISTRIBUTION WIDTH 16.2 % (9.6-15.2)
[2019-06-14 04:47] LABS: INTERNATIONAL NORMALIZED RATIO 2.58 (0.93-1.1); PROTHROMBIN TIME 26.1 Seconds (9.6-11.5)
[2019-06-14 04:51] LABS: ALBUMIN 3.8 g/dL (3.4-5.0); ANION GAP 3 mmol/L (5-15); CALCIUM 9.2 mg/dL (8.5-10.1); CHLORIDE 106 mmol/L (98-107)
--- NOTE | 2019-06-14 04:52 | NUR ---
X ray at bedside.
[2019-06-14 04:54] LABS: TROPONIN I < 0.015 ng/mL (0.000-0.045)
[2019-06-14] MEDS ORDERED: ONDANSETRON 2MG/ML, 2ML ONE (04:54)
--- NOTE | 2019-06-14 04:56 | NUR ---
patient states she's still very nauseous. medicated for nausea.
--- NOTE | 2019-06-14 05:31 | NUR ---
patient sleeping, respiration unlabored.
--- NOTE | 2019-06-14 05:58 | NUR ---
new orders made. patient to CT scan.
[2019-06-14] MEDS ORDERED: OMNIPAQUE 350 MG/ML, 75ML BOTTLE ONE (06:14)
--- NOTE | 2019-06-14 06:15 | NUR ---
back from CT scan. awaiting result.
--- NOTE | 2019-06-14 06:22 | NUR ---
ERP at bedside for re-evaluation. patient for admit.
[2019-06-14] MEDS ORDERED: CEFTRIAXONE PMX 1GM/50ML 50 ML IVPB ONE (06:30)
[2019-06-14] MEDS ORDERED: AZITHROMYCIN 500 MG in SODIUM CHLORIDE 0.9% 250 ML IV ONE (06:30)
[2019-06-14] MEDS ORDERED: CEFTRIAXONE PMX 1GM/50ML 50 ML ONE (06:39)
--- NOTE | 2019-06-14 06:45 | NUR ---
laborer bituminous paving at bedside for 2nd blood culture.
--- NOTE | 2019-06-14 06:53 | NUR ---
SBAR REPORT FROM [facility]. LAB AT BEDSIDE DRAWING SECOND SET OF BC. WILL START ABX ONCE COMPLETED.
--- NOTE | 2019-06-14 06:59 | NUR ---
ABX started per sep. 5 rights verified prior. 3p's addressed
[2019-06-14] MEDS ORDERED: ONDANSETRON 2MG/ML, 2ML IVPush PRN ×2 (07:00→09:30)
--- NOTE | 2019-06-14 07:16 | NUR ---
Attempted to call report. RN unavailable at this time.
--- NOTE | 2019-06-14 07:30 | NUR ---
Report given. POC discussed. Ready for transport.
[2019-06-14] MEDS ORDERED: PANTOPRAZOLE 40 MG IV IVPush SCH (09:30)
[2019-06-14] MEDS ORDERED: LABETALOL 5MG/ML, 20ML IVPush PRN (09:30)
[2019-06-14] MEDS ORDERED: ONDANSETRON ODT 4 MG PO PRN (09:30)
[2019-06-14] MEDS: TEMPLATE NON-FORMULARY MED. (Budesonide/Formoterol Fumarate (Symbicort 160-4.5 Mcg Inhaler INH SCH ×2 (09:30→21:00)
[2019-06-14] MEDS ORDERED: POLYETHYLENE GLYCOL 17 GM PACKET PO PRN (09:30)
[2019-06-14 09:49] VITALS: BP 133/68
[2019-06-14] MEDS: methylPREDNISolone SOD SUCC 125 MG/2 ML IVPush SCH ×3 (09:50→21:44)
[2019-06-14] MEDS: DOXYCYCLINE 100MG TABLET PO SCH ×2 (09:51→21:44)
[2019-06-14] MEDS: LIDODERM 5% PATCH TD SCH (10:03)
[2019-06-14] MEDS: AMPICILLIN/SULBACTAM 3 GM in SODIUM CHLORIDE 0.9% 100 ML IV SCH ×3 (10:09→21:44)
[2019-06-14] MEDS: ALBUTEROL/IPRATROPIUM 2.5MG/0.5MG, 3 ML NPPB SCH ×3 (10:56→19:14)
[2019-06-14 11:08] LABS: FREE T4 (FREE THYROXINE) 1.34 ng/dL (0.76-1.46)
[2019-06-14] MEDS: GUAIFENESIN 200 MG TABLET PO SCH ×3 (12:19→21:44)
[2019-06-14 12:50] VITALS: BP 147/66
[2019-06-14] MEDS: LORazepam 0.5MG TABLET PO PRN ×2 (16:09→21:59)
[2019-06-14 19:30] VITALS: BP 122/58
[2019-06-14] MEDS: ATORVASTATIN 40 MG TABLET PO SCH (21:44)
[2019-06-14] MEDS: LIDODERM REMOVE PATCH NOTE XX SCH (22:00)
[2019-06-14] MEDS: morphine SULFATE 10 MG/ML, 1ML IVPush PRN (22:00)
[2019-06-15 00:38] VITALS: BP 128/65
[2019-06-15 02:00] VITALS: BP 109/56
[2019-06-15] MEDS: methylPREDNISolone SOD SUCC 125 MG/2 ML IVPush SCH ×4 (03:53→21:55)
[2019-06-15] MEDS: AMPICILLIN/SULBACTAM 3 GM in SODIUM CHLORIDE 0.9% 100 ML IV SCH ×4 (03:53→21:54)
[2019-06-15] MEDS: PANTOPROZOLE 40MG TABLET PO SCH (06:07)
[2019-06-15] MEDS: GUAIFENESIN 200 MG TABLET PO SCH ×4 (06:07→21:55)
[2019-06-15 06:47] VITALS: BP 126/72
[2019-06-15] MEDS: ALBUTEROL/IPRATROPIUM 2.5MG/0.5MG, 3 ML NPPB SCH ×4 (07:30→19:57)
[2019-06-15] MEDS: TIOTROPIUM BROMIDE INH SCH (07:51)
[2019-06-15] MEDS: TEMPLATE NON-FORMULARY MED. (Budesonide/Formoterol Fumarate (Symbicort 160-4.5 Mcg Inhaler INH SCH ×2 (07:51→21:00)
[2019-06-15] MEDS: SENNA/DOCUSATE TABLET PO SCH (07:52)
[2019-06-15] MEDS: DOXYCYCLINE 100MG TABLET PO SCH ×2 (07:52→21:55)
[2019-06-15 08:05] LABS: MEAN CORPUSCULAR HEMOGLOBIN 28.3 pg (27.0-34.8); MEAN CORPUSCULAR HGB CONC 32.7 g/dL (32.4-35.8); MEAN CORPUSCULAR VOLUME 86.5 fL (80-100); PLATELET COUNT 246 x10^3/uL (130-400); RED BLOOD COUNT 4.26 x10^6/uL (3.82-5.3); RED CELL DISTRIBUTION WIDTH 16.2 % (9.6-15.2)
[2019-06-15 08:10] LABS: ALANINE AMINOTRANSFERASE 19 U/L (12-78); ALBUMIN 3.5 g/dL (3.4-5.0); ANION GAP 5 mmol/L (5-15); CALCIUM 8.7 mg/dL (8.5-10.1); CHLORIDE 106 mmol/L (98-107); CREATININE 0.56 mg/dL (0.55-1.02)
[2019-06-15 08:20] LABS: ALKALINE PHOSPHATASE 67 U/L (45-117); BILIRUBIN,TOTAL 0.5 mg/dL (0.2-1.0); TOTAL PROTEIN 6.9 g/dL (6.4-8.2)
[2019-06-15 08:48] LABS: BASOPHILS # (AUTO) 0.01 x10^3/uL (0-0.1); BASOPHILS % (AUTO) 0 % (0-1); EOSINOPHILS % (AUTO) 0 % (1-7); LYMPHOCYTES # (AUTO) 0.38 x10^3/uL (1-3.4); LYMPHOCYTES % (AUTO) 4 % (22-44); MD SCAN; MONOCYTES # (AUTO) 0.09 x10^3/uL (0.2-0.8); MONOCYTES % (AUTO) 1 % (2-9); NEUTROPHILS # (AUTO) 10.27 x10^3/uL (1.8-6.8); NEUTROPHILS % (AUTO) 96 % (42-75)
[2019-06-15] MEDS: LIDODERM 5% PATCH TD SCH (09:39)
[2019-06-15 13:17] VITALS: BP 150/67
[2019-06-15] MEDS: LORazepam 0.5MG TABLET PO PRN ×2 (15:04→23:22)
[2019-06-15] MEDS: DICYCLOMINE 10 MG CAPSULE PO SCH (17:05)
[2019-06-15] MEDS: morphine SULFATE 10 MG/ML, 1ML IVPush PRN (17:09)
[2019-06-15 19:25] VITALS: BP 134/68
[2019-06-15] MEDS: ATORVASTATIN 40 MG TABLET PO SCH (21:55)
[2019-06-15] MEDS: LIDODERM REMOVE PATCH NOTE XX SCH (22:00)
[2019-06-15] MEDS ORDERED: WARFARIN MECH. VALVE PROTOCOL 2.5 to 3.5 XX PRN (22:30)
[2019-06-15 22:48] LABS: INTERNATIONAL NORMALIZED RATIO 3.02 (0.93-1.1); PROTHROMBIN TIME 30.4 Seconds (9.6-11.5)
[2019-06-15] MEDS ORDERED: WARFARIN 5 MG TABLET PO-COUM ONE (23:30)
[2019-06-16] MEDS: GUAIFENESIN 200 MG TABLET PO SCH ×4 (04:54→20:23)
[2019-06-16] MEDS: methylPREDNISolone SOD SUCC 125 MG/2 ML IVPush SCH ×4 (04:54→22:33)
[2019-06-16] MEDS: AMPICILLIN/SULBACTAM 3 GM in SODIUM CHLORIDE 0.9% 100 ML IV SCH ×4 (04:54→22:33)
[2019-06-16] MEDS: PANTOPROZOLE 40MG TABLET PO SCH (04:54)
[2019-06-16 05:00] VITALS: BP 157/74
[2019-06-16] MEDS: morphine SULFATE 10 MG/ML, 1ML IVPush PRN ×2 (05:05→17:20)
[2019-06-16 05:28] LABS: BASOPHILS % (AUTO) 0 % (0-1); EOSINOPHILS # (AUTO) 0.08 x10^3/uL (0-0.4); EOSINOPHILS % (AUTO) 1 % (1-7); LYMPHOCYTES # (AUTO) 0.49 x10^3/uL (1-3.4); LYMPHOCYTES % (AUTO) 4 % (22-44); MD NO; MEAN CORPUSCULAR HEMOGLOBIN 28.4 pg (27.0-34.8); MEAN CORPUSCULAR HGB CONC 32.5 g/dL (32.4-35.8); MEAN CORPUSCULAR VOLUME 87.4 fL (80-100); MEAN PLATELET VOLUME 9.6 fL (7.4-10.4); MONOCYTES # (AUTO) 0.25 x10^3/uL (0.2-0.8); MONOCYTES % (AUTO) 2 % (2-9); NEUTROPHILS # (AUTO) 11.29 x10^3/uL (1.8-6.8); NEUTROPHILS % (AUTO) 93 % (42-75); PLATELET COUNT 248 x10^3/uL (130-400); RED BLOOD COUNT 3.94 x10^6/uL (3.82-5.3); RED CELL DISTRIBUTION WIDTH 16.1 % (9.6-15.2)
[2019-06-16 05:33] LABS: ALBUMIN 3.3 g/dL (3.4-5.0); ANION GAP 3 mmol/L (5-15); CALCIUM 8.6 mg/dL (8.5-10.1); CHLORIDE 108 mmol/L (98-107)
[2019-06-16 05:36] LABS: ALANINE AMINOTRANSFERASE 22 U/L (12-78); ALKALINE PHOSPHATASE 57 U/L (45-117); BILIRUBIN,TOTAL 0.4 mg/dL (0.2-1.0); CREATININE 0.53 mg/dL (0.55-1.02); TOTAL PROTEIN 6.3 g/dL (6.4-8.2)
[2019-06-16] MEDS: ALBUTEROL/IPRATROPIUM 2.5MG/0.5MG, 3 ML NPPB SCH ×4 (06:00→20:49)
[2019-06-16] MEDS: TEMPLATE NON-FORMULARY MED. (Budesonide/Formoterol Fumarate (Symbicort 160-4.5 Mcg Inhaler INH SCH ×2 (08:14→21:00)
[2019-06-16] MEDS: DICYCLOMINE 10 MG CAPSULE PO SCH ×3 (08:14→17:00)
[2019-06-16] MEDS: SENNA/DOCUSATE TABLET PO SCH (08:14)
[2019-06-16] MEDS: DOXYCYCLINE 100MG TABLET PO SCH ×2 (08:14→20:23)
[2019-06-16] MEDS: TIOTROPIUM BROMIDE INH SCH (08:15)
[2019-06-16 08:18] VITALS: BP 126/76
[2019-06-16] MEDS: LIDODERM 5% PATCH TD SCH (10:41)
[2019-06-16] MEDS: LORazepam 0.5MG TABLET PO PRN (13:27)
[2019-06-16 14:06] VITALS: BP 145/78
[2019-06-16] MEDS ORDERED: WARFARIN 5 MG TABLET PO-COUM SCH (18:00)
[2019-06-16 19:59] VITALS: BP 135/65
[2019-06-16] MEDS: ATORVASTATIN 40 MG TABLET PO SCH (20:23)
[2019-06-16] MEDS: LIDODERM REMOVE PATCH NOTE XX SCH (22:00)
[2019-06-17 01:27] VITALS: BP 121/69
[2019-06-17] MEDS: methylPREDNISolone SOD SUCC 125 MG/2 ML IVPush SCH ×4 (04:11→21:07)
[2019-06-17] MEDS: AMPICILLIN/SULBACTAM 3 GM in SODIUM CHLORIDE 0.9% 100 ML IV SCH ×4 (04:11→22:13)
[2019-06-17 05:05] LABS: INTERNATIONAL NORMALIZED RATIO 3.88 (0.93-1.1); PROTHROMBIN TIME 38.7 Seconds (9.6-11.5)
[2019-06-17] MEDS: GUAIFENESIN 200 MG TABLET PO SCH ×4 (06:06→21:07)
[2019-06-17] MEDS: PANTOPROZOLE 40MG TABLET PO SCH (06:06)
[2019-06-17] MEDS: ALBUTEROL/IPRATROPIUM 2.5MG/0.5MG, 3 ML NPPB SCH ×4 (07:15→20:09)
[2019-06-17] MEDS: BUDESONIDE 0.5 MG/2 ML INHA INH SCH ×2 (07:15→20:10)
[2019-06-17 07:29] VITALS: BP 149/80
[2019-06-17] MEDS: TEMPLATE NON-FORMULARY MED. (Budesonide/Formoterol Fumarate (Symbicort 160-4.5 Mcg Inhaler INH SCH ×2 (07:39→21:00)
[2019-06-17] MEDS: TIOTROPIUM BROMIDE INH SCH (07:39)
[2019-06-17] MEDS: LORazepam 0.5MG TABLET PO PRN ×2 (08:53→21:14)
[2019-06-17] MEDS: DICYCLOMINE 10 MG CAPSULE PO SCH ×3 (09:39→16:24)
[2019-06-17] MEDS: DOXYCYCLINE 100MG TABLET PO SCH ×2 (09:39→21:07)
[2019-06-17] MEDS: SENNA/DOCUSATE TABLET PO SCH (09:39)
[2019-06-17] MEDS: LIDODERM 5% PATCH TD SCH (09:40)
[2019-06-17 13:58] VITALS: BP 147/74
[2019-06-17] MEDS ORDERED: WARFARIN 5 MG TABLET PO-COUM SCH (18:00)
[2019-06-17 20:27] VITALS: BP 153/73
[2019-06-17] MEDS: ATORVASTATIN 40 MG TABLET PO SCH (21:07)
[2019-06-17] MEDS: LIDODERM REMOVE PATCH NOTE XX SCH (22:00)
[2019-06-18 00:49] VITALS: BP 129/55
[2019-06-18] MEDS: AMPICILLIN/SULBACTAM 3 GM in SODIUM CHLORIDE 0.9% 100 ML IV SCH ×3 (03:59→16:00)
[2019-06-18] MEDS: methylPREDNISolone SOD SUCC 125 MG/2 ML IVPush SCH ×3 (04:00→17:45)
[2019-06-18] MEDS: GUAIFENESIN 200 MG TABLET PO SCH ×3 (05:34→16:00)
[2019-06-18] MEDS: PANTOPROZOLE 40MG TABLET PO SCH (05:35)
[2019-06-18 06:12] LABS: INTERNATIONAL NORMALIZED RATIO 3.06 (0.93-1.1); PROTHROMBIN TIME 30.8 Seconds (9.6-11.5)
[2019-06-18 06:14] LABS: BASOPHILS % (AUTO) 0 % (0-1); EOSINOPHILS % (AUTO) 0 % (1-7); LYMPHOCYTES # (AUTO) 0.27 x10^3/uL (1-3.4); LYMPHOCYTES % (AUTO) 5 % (22-44); MD NO; MEAN CORPUSCULAR HEMOGLOBIN 28.2 pg (27.0-34.8); MEAN CORPUSCULAR HGB CONC 32.6 g/dL (32.4-35.8); MEAN CORPUSCULAR VOLUME 86.4 fL (80-100); MEAN PLATELET VOLUME 9.1 fL (7.4-10.4); MONOCYTES # (AUTO) 0.22 x10^3/uL (0.2-0.8); MONOCYTES % (AUTO) 4 % (2-9); NEUTROPHILS % (AUTO) 91 % (42-75); PLATELET COUNT 212 x10^3/uL (130-400); RED BLOOD COUNT 3.87 x10^6/uL (3.82-5.3); RED CELL DISTRIBUTION WIDTH 15.8 % (9.6-15.2)
[2019-06-18 06:17] LABS: ALANINE AMINOTRANSFERASE 32 U/L (12-78); ANION GAP 7 mmol/L (5-15); CALCIUM 8.4 mg/dL (8.5-10.1); CHLORIDE 106 mmol/L (98-107); CREATININE 0.42 mg/dL (0.55-1.02)
[2019-06-18 06:19] LABS: ALKALINE PHOSPHATASE 51 U/L (45-117); BILIRUBIN,TOTAL 0.4 mg/dL (0.2-1.0); TOTAL PROTEIN 5.8 g/dL (6.4-8.2)
[2019-06-18 07:06] VITALS: BP 163/74
[2019-06-18] MEDS: BUDESONIDE 0.5 MG/2 ML INHA INH SCH (07:39)
[2019-06-18] MEDS: ALBUTEROL/IPRATROPIUM 2.5MG/0.5MG, 3 ML NPPB SCH ×2 (07:39→10:54)
[2019-06-18] MEDS ORDERED: AMOX1TAB64 PO (08:35)
[2019-06-18] MEDS ORDERED: OMEP-110 PO (08:39)
[2019-06-18] MEDS ORDERED: DOXY100T PO (08:39)
[2019-06-18] MEDS ORDERED: DOXY100C2 PO ×2 (08:39)
[2019-06-18] MEDS ORDERED: PRED10TA PO (08:39)
[2019-06-18] MEDS: TEMPLATE NON-FORMULARY MED. (Budesonide/Formoterol Fumarate (Symbicort 160-4.5 Mcg Inhaler INH SCH (09:00)
[2019-06-18] MEDS: TIOTROPIUM BROMIDE INH SCH (09:00)
[2019-06-18] MEDS: SENNA/DOCUSATE TABLET PO SCH (09:00)
[2019-06-18] MEDS: DOXYCYCLINE 100MG TABLET PO SCH (09:47)
[2019-06-18] MEDS: DICYCLOMINE 10 MG CAPSULE PO SCH ×3 (09:47→17:44)
[2019-06-18] MEDS: LORazepam 0.5MG TABLET PO PRN (09:49)
[2019-06-18] MEDS: LIDODERM 5% PATCH TD SCH (09:50)
[2019-06-18 12:50] VITALS: BP 154/71
[2019-06-18] MEDS ORDERED: WARFARIN 5 MG TABLET PO-COUM ONE (18:00)
== END 2019-06-18 18:10 | disposition home or self-care (01) | DRG 177 ==
LOC: ED 05:40 → EDIP 06:48 → 4EST 07:50 → 3N 06-16 18:11
PROVIDERS: ADMIT Internal Medicine; ATTEND Hospitalist
DX: J15.0 Pneumonia due to Klebsiella pneumoniae (principal); J96.21 Acute and chronic respiratory failure with hypoxia; I50.32 Chronic diastolic (congestive) heart failure; J44.1 Chronic obstructive pulmonary disease with (acute) exacerbation; E46 Unspecified protein-calorie malnutrition; J44.0 Chronic obstructive pulmonary disease with (acute) lower respiratory infection; J98.11 Atelectasis; J15.9 Unspecified bacterial pneumonia; E78.5 Hyperlipidemia, unspecified; I11.0 Hypertensive heart disease with heart failure; Z66 Do not resuscitate; Z79.01 Long term (current) use of anticoagulants; Z83.3 Family history of diabetes mellitus; Z87.442 Personal history of urinary calculi; Z87.891 Personal history of nicotine dependence; Z95.1 Presence of aortocoronary bypass graft; Z95.2 Presence of prosthetic heart valve; Z99.81 Dependence on supplemental oxygen; Z68.20 Body mass index [BMI] 20.0-20.9, adult
CPT/HCPCS: 36415; 71045; 71260; 74018; 80048; 80053; 82040; 83735; 84100; 84145; 84439; 84443; 84484; 85025; 85610; 87040; 87070; 87077; 87186; 87205; 93005; 94640; 96374; 96375; 99285; G0378; J0295; J0696; J2405; J7620; J7626; Q9967; C9113; J2270; J2930

== ENCOUNTER 2021-03-19 13:01 | Outpatient (CLI) | payer MEDICARE, MEDICAID ==
[~2021-03-19 13:01] MED LIST changes: +AMLO-211 PO; -AMLO10TA8 PO; +DOXY-246 PO; -DOXY100C15 PO; -DOXY100C2 PO; +DOXY100C5 PO; +DOXY100T PO; -FOLI-17 PO; +FOLI1TAB32 PO; +HYDR-2214; +HYDR-2214 PO; -HYDR-3240; -HYDR-3240 PO; +OMEP-110 PO; -POTA99TA14; +POTA99TA19; +PRED10TA PO; -WARF1TAB; +WARF1TAB2; -WARF2.5T PO; +WARF2.5T2 PO; -WARF5TAB PO; +WARF5TAB2 PO
[2021-03-19] MEDS ORDERED: OMNIPAQUE 350 MG/ML, 150 ML BOTTLE ONE (14:12)
== END 2021-03-19 23:59 | disposition home or self-care (01) ==
LOC: CFH 13:01
PROVIDERS: ATTEND Family Medicine
DX: J43.9 Emphysema, unspecified (principal); R22.0 Localized swelling, mass and lump, head; R13.10 Dysphagia, unspecified; T17.908D Unspecified foreign body in respiratory tract, part unspecified causing other injury, subsequent encounter; I65.23 Occlusion and stenosis of bilateral carotid arteries; J98.11 Atelectasis
CPT/HCPCS: 70491; 71260; 82565; Q9967